=== PATIENT | male | born 1980 | race Caucasian/White ===

== ENCOUNTER 2018-07-20 14:22 | Emergency (ER) | payer MEDICAID ==
[2018-07-20] MEDS: TETRACAINE 0.5% 4 ML OPH LEFT EYE (15:21)
[2018-07-20] MEDS: FLUORESCEIN STRIP LEFT EYE (15:21)
== END 2018-07-20 15:55 | disposition home or self-care (01) ==
LOC: FTE 14:22
DX: H57.89 Other specified disorders of eye and adnexa (principal)
CPT/HCPCS: 99283; Z7502

== ENCOUNTER 2018-09-10 21:15 | Emergency (ER) | payer MEDICAID ==
[2018-09-10 22:33] LABS: URINE BLOOD (Dip) POC 2+ (NEGATIVE); URINE GLUCOSE (Dip) POC Negative (NEGATIVE); URINE KETONES (Dip) POC Negative (NEGATIVE); URINE LEUKOCYTE EST (Dip) POC 2+ (NEGATIVE); URINE NITRITE (Dip) POC Negative (NEGATIVE); URINE TOTAL PROTEIN POC 1+ (NEGATIVE)
[2018-09-10 22:33] LABS: URINE PH (Dip) POC 7.5 (5.0-8.5)
[2018-09-10] MEDS: IBUPROFEN 600 MG TAB PO (23:12)
== END 2018-09-10 23:24 | disposition home or self-care (01) ==
LOC: FTE 21:15
DX: N39.0 Urinary tract infection, site not specified (principal)
CPT/HCPCS: 81003; 87086; 87591; 99283